=== PATIENT | female | born 1925 | race Native Hawaiian/Other Pacific Islander ===

== ENCOUNTER 2017-05-20 14:50 | Emergency (ER) | payer OTHER ==
[~2017-05-20] VITALS: Ht 167.6 cm; Wt 49.9 kg
[2017-05-20 15:08] VITALS: TEMP 97.8
[2017-05-20 16:19] LABS: PLATELET COUNT 180 K/uL (152-353)
[2017-05-20 16:57] LABS: POTASSIUM 2.3 mmol/L (3.6-5.2)
[2017-05-20 17:59] VITALS: BP 118/56
== END 2017-05-20 17:55 | disposition home or self-care (01) ==
LOC: ED 14:50
PROVIDERS: Emergency Medicine
DX: L03.116 Cellulitis of left lower limb (principal)
CPT/HCPCS: 80048; 84550; 85027; 99283

== ENCOUNTER 2017-06-01 16:20 | Inpatient (IN) | payer OTHER ==
[~2017-06-01] VITALS: Ht 165.1 cm; Wt 53.3 kg
[2017-06-01 17:27] LABS: PLATELET COUNT 254 K/uL (152-353)
[2017-06-01 17:29] VITALS: BP 142/54; TEMP 98.1; Ht 165.1 cm; Wt 53.3 kg
[2017-06-01 17:52] LABS: POTASSIUM 2.3 mmol/L (3.6-5.2)
[2017-06-01] MEDS ORDERED: REGLAN PO (18:12)
[2017-06-01] MEDS ORDERED: CARAFATE1 GM PO (18:13)
[2017-06-01] MEDS ORDERED: FURO20TA67 PO (18:14)
[2017-06-01 20:00] VITALS: BP 161/50; TEMP 98.2
[2017-06-02] VITALS: BP 123/53; TEMP 98.4
[2017-06-02 04:00] VITALS: BP 118/51; TEMP 99.2
[2017-06-02 06:50] LABS: PLATELET COUNT 253 K/uL (152-353)
[2017-06-02 07:06] LABS: POTASSIUM 2.5 mmol/L (3.6-5.2)
[2017-06-02 08:00] VITALS: BP 129/43; TEMP 98.3
[2017-06-02 12:00] VITALS: BP 131/56; TEMP 99.1
[2017-06-02 16:00] VITALS: BP 128/52; TEMP 99
--- NOTE | 2017-06-02 17:13 | NUR ---
JEANNETTE CALDWELL (THIGH HIGHS) APPLIED TO PTS LEGS MALGORZATA.
[2017-06-02 20:00] VITALS: BP 138/60; TEMP 98.4
--- NOTE | 2017-06-02 20:22 | NUR ---
ZOFRAN 4MG GIVEN IV FOR NAUSEA
[2017-06-03] VITALS: BP 138/70; TEMP 97.9
[2017-06-03 04:00] VITALS: BP 142/60; TEMP 97.6
[2017-06-03 06:34] LABS: PLATELET COUNT 209 K/uL (152-353)
[2017-06-03 06:52] LABS: POTASSIUM 2.8 mmol/L (3.6-5.2)
[2017-06-03 08:00] VITALS: BP 147/63; TEMP 97.8
[2017-06-03 12:00] VITALS: BP 146/63; TEMP 97.7
[2017-06-03 16:00] VITALS: BP 148/67; TEMP 97.8
--- NOTE | 2017-06-03 18:00 | NUR ---
IV FOUND OUT OF PT WHEN ENTERING ROOM. 22G IV RESTARTED IN RIGHT FOREARM. NO PROBLEMS NOTED.
[2017-06-03 20:00] VITALS: BP 137/70; TEMP 98.6
[2017-06-04] VITALS: BP 127/58; TEMP 97.6
--- NOTE | 2017-06-04 00:45 | NUR ---
LATE ENTRY 06/03/17 0040 PTIS EXTREMELY CONFUSED AT THIS TIME. FOUND TO HAVE PULLED IV OUT. CATHETER INTACT.
[2017-06-04 04:00] VITALS: BP 162/84; TEMP 97.7
[2017-06-04 05:04] LABS: PLATELET COUNT 236 K/uL (152-353)
[2017-06-04 05:17] LABS: POTASSIUM 3.1 mmol/L (3.6-5.2)
[2017-06-04 08:00] VITALS: BP 156/83; TEMP 97.5
[2017-06-04 12:00] VITALS: BP 139/71; TEMP 97.7
--- NOTE | 2017-06-04 15:47 | NUR ---
IV D/C'D. PT D/C'D PER DR HUTCHINSON. PT LEFT VIA WC. PTS SON TO TRANSPORT BACK TO [facility]. NAD NOTED.
== END 2017-06-04 15:40 | disposition home or self-care (01) | DRG 546 ==
LOC: MED/SURG 16:20
PROVIDERS: ADMIT Family Medicine
DX: I77.6 Arteritis, unspecified (principal); L03.119 Cellulitis of unspecified part of limb; E87.6 Hypokalemia
CPT/HCPCS: 80053; 83735; 84132; 85027; 87040; 96365; 96366; 96367; J2405; J2543; J3475; J3480

== ENCOUNTER 2017-06-09 17:16 | Emergency (ER) | payer OTHER ==
[~2017-06-09] VITALS: Ht 165.1 cm; Wt 49.9 kg
[~2017-06-09 17:16] MED LIST: CARAFATE1 GM PO; FURO20TA67 PO; REGLAN PO
[2017-06-09] MEDS ORDERED: MELATONIN3 M2 PO (17:39)
[2017-06-09] MEDS ORDERED: SYNTHROID137 MC1 PO ×2 (17:40)
[2017-06-09] MEDS ORDERED: ONDA2INJ2 IV (17:40)
[2017-06-09] MEDS ORDERED: BISACODYL LAXAT10 MG RE (17:41)
[2017-06-09] MEDS ORDERED: TYLENOL325 MG OR (17:42)
[2017-06-09] MEDS ORDERED: PROMETHAZINE12.5 M1 RE (17:42)
[2017-06-09] MEDS ORDERED: [UNRECOGNIZED DRUG - OTHER] OR (17:42)
[2017-06-09] MEDS ORDERED: SERT50TA PO (17:43)
[2017-06-09] MEDS ORDERED: KLOR-CON SPRIN10 MEQ PO (17:43)
[2017-06-09 18:35] LABS: POTASSIUM 3.3 mmol/L (3.6-5.2)
[2017-06-09 18:40] LABS: PLATELET COUNT 319 K/uL (152-353)
[2017-06-09 19:38] VITALS: BP 178/91; TEMP 98.2
== END 2017-06-09 19:40 | disposition home or self-care (01) ==
LOC: ED 17:16
DX: S92.001A Unspecified fracture of right calcaneus, initial encounter for closed fracture (principal); M85.872 Other specified disorders of bone density and structure, left ankle and foot; M85.871 Other specified disorders of bone density and structure, right ankle and foot; S92.002A Unspecified fracture of left calcaneus, initial encounter for closed fracture; M79.671 Pain in right foot
CPT/HCPCS: 36415; 80053; 85027; 99283